=== PATIENT | male | born 1960 | race Hispanic/Latino ===

== ENCOUNTER 2019-03-29 18:58 | Emergency (ER) | payer OTHER ==
[~2019-03-29] VITALS: Ht 177.8 cm; Wt 113.4 kg
[2019-03-29] MEDS ORDERED: TRAMADOL HCL 50 MG TAB PO STA (19:03)
--- NOTE | 2019-03-29 20:17 | Diagnostic Imaging Report ---
EXAMINATION: RIBS UNILAT W/CXR INDICATION: ^FALL, RIGHT RIB PAIN ^[id number] ^1936 ^Y COMPARISON: None FINDINGS: TUBES and LINES: None. LUNGS: Lungs are well inflated. There is no evidence of pneumonia or pulmonary edema. Minimal left basilar subsegmental atelectasis. PLEURA: No pleural effusion or pneumothorax. HEART AND MEDIASTINUM: The cardiomediastinal silhouette is unremarkable. BONES AND SOFT TISSUES: Mildly displaced anterior right sixth rib fracture. Soft tissues are unremarkable. UPPER ABDOMEN: No free air under the diaphragm. IMPRESSION: Mildly displaced anterior right sixth rib fracture. No visible pneumothorax. Signed by: Dr. Mookie Taylor MD on 03/29/2019 8:14 PM
[2019-03-29 20:47] VITALS: BP 146/89
== END 2019-03-29 20:53 | disposition home or self-care (01) ==
LOC: ER 19:03
DX: S22.31XA Fracture of one rib, right side, initial encounter for closed fracture (principal); W01.0XXA Fall on same level from slipping, tripping and stumbling without subsequent striking against object, initial encounter; Y92.414 Local residential or business street as the place of occurrence of the external cause
CPT/HCPCS: 71101; 99283